=== PATIENT | male | born 1970 | race Caucasian/White ===

== ENCOUNTER 2023-06-30 21:49 | Emergency (ER) | payer BC, SELFPAY ==
[2023-06-30 22:01] VITALS: BP 137/87; PULSE 96; RESP 16; TEMP 36.9; O2SAT 96; BMI 33.3
--- NOTE | 2023-06-30 22:32 | CRLHL7_ITS ---
For Patients: As a result of the Century Cures Act, medical imaging exams and procedure reports are released immediately into your electronic medical record. You may view this report before your referring provider. If you have questions, please contact your health care provider. INDICATION: Chest pain. TECHNIQUE: Chest radiograph, 1 view. COMPARISON: Chest radiographs 03/29/2023 FINDINGS: Lines/Tubes/Devices: None. Mediastinum: Normal cardiac silhouette. Lungs: Linear bandlike opacifications of the lung bases likely due to subsegmental atelectasis and/or scarring. Hazy ill-defined opacifications of the zsarz-autgofm-adrh-left lower lung zones. Airways: The trachea remains midline. Pleura: There may be minimal blunting left costophrenic angle, suggestive of small pleural effusion. No right pleural effusion. No pneumothorax or Bones: No acute osseous abnormalities. Upper Abdomen: Unremarkable. IMPRESSION: Hazy ill-defined opacifications of the right greater than left lower lung zones, could represent atelectasis or developing bibasilar pneumonias in the proper clinical setting. Trace left pleural effusion. Dictated by Jaime Cobb MD @ 06/30/2023 10:58:46 PM (Electronically Signed)
[2023-06-30] MEDS: 0.9 % SODIUM CHLORIDE 1000 ml 1,000 ML IV (23:05)
[2023-06-30 23:10] VITALS: O2SAT 92
[2023-06-30 23:26] LABS: Chloride* 103 mmol/L (96-114); Sodium* 138 mmol/L (135-149)
[2023-06-30 23:27] LABS: Potassium* 3.8 mmol/L (3.6-5.1)
[2023-06-30 23:30] LABS: Anion Gap 10 mEq/L (7-15); Blood Urea Nitrogen* 16 mg/dL (7-30); Calcium* 9.2 mg/dL (8.4-10.6); Carbon Dioxide* 25 mmol/L (20-32); Glucose* 96 mg/dL (60-115)
--- NOTE | 2023-06-30 23:35 | CRLHL7_ITS ---
For Patients: As a result of the Century Cures Act, medical imaging exams and procedure reports are released immediately into your electronic medical record. You may view this report before your referring provider. If you have questions, please contact your health care provider. INDICATION: Shortness of breath, cough, chest pain. TECHNIQUE: CT chest PE was acquired with 95 cc Isovue 370 IV contrast. COMPARISON: None. FINDINGS: Heart and vasculature: Contrast opacification of the pulmonary arterial tree is adequate. No sign of pulmonary embolism. Heart size is normal. Thoracic aorta and pulmonary artery are normal in caliber. Lungs and pleura: Few scattered sub-6 mm pulmonary nodules, such as a 5 mm right middle lobe nodule (series 4, image 126) and a 5 mm right lower lobe nodule (series 4, image 118). No infiltrates. No pleural effusions, pleural thickening, or pneumothorax. Lymph nodes/mediastinum: No mediastinal, hilar, or axillary adenopathy. Thyroid gland is unremarkable. Chest wall: No masses. Upper abdomen: No acute or significant findings. Bones: Unremarkable for age. IMPRESSION: 1. No evidence of pulmonary embolism or acute intrathoracic abnormality. 2. Few scattered sub-6 mm pulmonary nodules. Please see below for follow-up guidelines. SOCIETY GUIDELINES - SOLID NODULES: MULTIPLE LOW RISK - nodule less than 6 mm: No routine follow-up. - nodule 6-8 mm: CT at 3-6 months, then consider CT at 18-24 months. - nodule greater than 8 mm: CT at 3-6 months, then consider CT at 18-24 months. MULTIPLE HIGH RISK - nodule less than 6 mm: Optional CT at 12 months. - nodule 6-8 mm: CT at 3-6 months, then at 18-24 months. - nodule greater than 8 mm: CT at 3-6 months, then at 18-24 months. Please note that all CT scans at this facility use dose modulation, iterative reconstruction, and/or weight-based dosing when appropriate to reduce radiation dose to as low as reasonably achievable. Dictated by Mark Olivo MD @ 07/01/2023 12:53:41 AM (Electronically Signed)
[2023-06-30 23:44] LABS: D Dimer Quantitative* < 0.27 ug/ml (0.00-0.50)
[2023-06-30 23:49] LABS: Basophils Absolute Auto 0.04 K/uL (0.00-0.30); Basophils Percent Auto 0.6 % (0.0-3.0); Eosinophils Absolute Auto 0.06 K/uL (0.00-0.50); Eosinophils Percent Auto 0.9 % (0.0-7.0); Hematocrit 47.1 % (37.0-53.0); Hemoglobin* 16.3 gm/dL (13.5-17.5); Immature Granulocytes Abs Auto 0.01 K/uL (0.00-0.30); Immature Granulocytes Pct Auto 0.2 %; Lymphocytes Absolute Auto 2.24 K/uL (0.90-2.90); Mean Corpuscular HGB Conc 35 gm/dL (32-36); Mean Corpuscular Hemoglobin 30 pg (26-34); Mean Corpuscular Volume 88 fL (80-100); Monocytes Percent Auto 7.6 % (0.0-11.0); Neutrophils Absolute Auto 3.74 K/uL (1.7-7.0); Neutrophils Percent Auto 56.7 % (42.0-72.0); Platelet Count* 337 K/uL (140-440); RDW Coefficient of Variation % 12.6 % (11.5-15.5); Red Blood Count 5.37 m/uL (4.30-5.90); White Blood Count* 6.59 K/uL (4.50-11.00)
[2023-06-30 23:52] LABS: PCR FLU A Negative PCR FLU A (Negative); PCR FLU B Negative PCR FLU B (Negative); PCR RSV Negative PCR RSV (Negative)
[2023-06-30 23:55] LABS: Slide Review Reflex No
[2023-06-30 23:56] LABS: NT Pro B Type NatriureticPept* < 20 pg/mL
[2023-07-01 00:06] LABS: SARS PCR* Negative SARS-CoV-2 (Negative)
[2023-07-01 00:19] LABS: Creatinine* 0.8 mg/dL (0.5-1.5); Est. Creatinine Clearance* 91.82; Estimated Glomerular Filt Rate 105 ml/min
--- NOTE | 2023-07-01 01:08 | ED_ITS ---
HPI - Chest Pain General Date Seen: 07/01/23 Chief Complaint: Abdominal Pain Stated Complaint: Chest and abdomen pain Time Seen by Provider: 06/30/23 21:50 Source: patient Mode of arrival: ambulatory Limitations: no limitations History of Present Illness HPI narrative: Patient is a 52-year-old gentleman who presents here with something in his throat, he has is feeling a something in his throat he has had this on off, but worse today. He has had this multiple times in the past and does take omeprazole irregularly he thinks for this, he tried some Mylanta tonight in helped a little bit. He does not have it worse when he moves around exerts himself, has been worked up for chest pain in the past, he tells me this is not his heart. Denies any leg swelling so this coughing. Is not on any antihypertensives, no history elevated cholesterol no history of diabetes, and nonsmoker. Feels almost that food maybe get stuck a little bit, but was able to drink a whole bottle water on the way over. He last ate approximately 5:00 p.m. and that was fine. No family history of premature coronary artery disease is not use cocaine or other medications I do not think he has had a previous EGD Prior episodes: Yes Treatment prior to arrival: none Risk Factors Coronary artery disease risk factors: none Thoracic aortic dissection risk factors: none Related Data Home Medications Medication Instructions Recorded Confirmed omeprazole 20 mg tablet,delayed 20 mg PO DAILY 06/30/23 06/30/23 release Allergies Allergy/AdvReac Type Severity Reaction Status Date / Time No Known Drug Allergies Allergy Verified 06/30/23 21:58 Review of Systems Status of ROS Reports: 10 or more systems reviewed and unremarkable except as noted in History and below [facility] Social History Smoking Status: Never smoker Do you use any of these nicotine containing products: None Second hand tobacco smoke exposure: No How often do you have a drink containing alcohol: never How often do you have six or more drinks on one occasion: Never AUDIT-C Alcohol total score: 0 Non-prescribed substance use: denies use service: No Exam Narrative Exam Narrative: Patient is seen in room 2 she is in no apparent distress Patient is speaking normally, no problem with slurring words, oriented x3. Head eyes ears nose and throat exam show equal pupils, no scleral icterus, extraocular muscles are normal, no facial droop, speech is normal, trachea normal and midline. Thyroid normal midline palpable not enlarged. Chest shows symmetrical rise bilaterally, normal auscultation with no wheezes, no increased work of breathing, no overt bruising or lesions seen, no tenderness is noted on auscultation. Heart sounds normal with no S3-S4 no murmurs clicks or gallops. Abdomen shows no obvious masses or hepatosplenomegaly, no organomegaly, bowel sounds are normal in all quadrants. No tenderness is noted also in all quadrants. Upper and lower extremities show normal power, normal range of motion, pulses are normal, sensations normal, fine motor movements are normal, pelvis is stable to rocking. Cervical spine shows normal range of motion, and palpably not tender. Thoracic spine shows normal range of motion, and palpably not tender, lumbar spine shows no tenderness to palpation percussion and is otherwise normal range of motion. Skin shows no rashes, petechiae or eccymosis. Const Vital Signs, click to edit/add: Vital Signs - 24 hr 06/30/23 22:01 06/30/23 23:10 Temperature 98.5 F Pulse Rate [Pulse Oximeter] 96 Respiratory Rate 16 Blood Pressure [Right Upper Arm] 137/87 Pulse Oximetry 96 92 Oxygen Delivery Method Room Air Documenting provider has reviewed patient's vital signs: yes Course Course ED Course: Discussed with the patient is D-dimer is normal troponins normal his chest he does not show any acute pneumonia. For pulmonary embolism I think this is likely related to reflux bowel any needs to take his omeprazole more regular., like every day also would like him to follow-up for an EGD. He is very comfortable this plan he will return if any further issues or questions. Vital Signs Vital signs: Initial Vital Signs Temperature 98.5 F 06/30/23 22:01 Temperature Source Temporal Artery Scan 06/30/23 22:01 Pulse Rate 96 06/30/23 22:01 Pulse Rhythm Regular 06/30/23 22:01 Pulse Strength 3+ Normal 06/30/23 22:01 Respiratory Rate 16 06/30/23 22:01 Blood Pressure 137/87 06/30/23 22:01 Blood Pressure Mean 103 06/30/23 22:01 Blood Pressure Position Sitting 06/30/23 22:01 Pulse Oximetry 96 06/30/23 22:01 Oxygen Delivery Method Room Air 06/30/23 22:01 Vital Signs Temperature 98.5 F 06/30/23 22:01 Pulse Rate 96 06/30/23 22:01 Respiratory Rate 16 06/30/23 22:01 Blood Pressure 137/87 06/30/23 22:01 Pulse Oximetry 96 06/30/23 22:01 Oxygen Delivery Method Room Air 06/30/23 22:01 Temperature 98.5 F 06/30/23 22:01 Pulse Rate 96 06/30/23 22:01 Respiratory Rate 16 06/30/23 22:01 Blood Pressure 137/87 06/30/23 22:01 Pulse Oximetry 92 06/30/23 23:10 Oxygen Delivery Method Room Air 06/30/23 22:01 Medications Administered Medications: Discontinued Medications Generic Name Dose Route Start Last Admin Trade Name Freq PRN Reason Stop Dose Admin Sodium Chloride 1,000 mls @ 1,000 mls/hr 06/30/23 22:45 07/01/23 00:05 0.9 % Sodium Chloride 1000 Ml IV 06/30/23 23:44 Infused .Q1H JT Infusion MDM - Chest Pain MDM Narrative Medical decision making narrative: During the evaluation of this patient I considered multiple differential diagnosis is. The life-threatening differential diagnosis include coronary disease/UT, pulmonary embolism, pneumothorax, pneumonia, and aortic dissection. Other differential diagnosis included but were not limited to pericarditis, myocarditis, chest wall pain, GERD, esophageal rupture, rib fracture contusion, pleurisy, as well as other etiologies. Medical Records Data Attestation: I reviewed the patient's medical records. Lab Data Attestation: I reviewed the patient's lab results. Labs: Lab Results 06/30/23 06/30/23 Range/Units 22:34 23:06 WBC 6.59 (4.50-11.00) K/uL RBC 5.37 (4.30-5.90) m/uL Hgb 16.3 (13.5-17.5) gm/dL Hct 47.1 (37.0-53.0) % MCV 88 (80-100) fL MCH 30 (26-34) pg MCHC 35 (32-36) gm/dL RDW Coeff of Francis 12.6 (11.5-15.5) % Plt Count 337 (140-440) K/uL Neut % (Auto) 56.7 (42.0-72.0) % Lymph % (Auto) 34.0 (20-44) % [place] % (Auto) 7.6 (0.0-11.0) % Eos % (Auto) 0.9 (0.0-7.0) % Baso % (Auto) 0.6 (0.0-3.0) % Neut # (Auto) 3.74 (1.7-7.0) K/uL Lymph # (Auto) 2.24 (0.90-2.90) K/uL [place] # (Auto) 0.50 (0.00-0.90) K/UL Eos # (Auto) 0.06 (0.00-0.50) K/uL Baso # (Auto) 0.04 (0.00-0.30) K/uL Abs Immat Gran (auto) 0.01 (0.00-0.30) K/uL Imm/Tot Granulo (auto) 0.2 % D-Dimer Quant (PE/DVT) < 0.27 (0.00-0.50) ug/ml Sodium 138 (135-149) mmol/L Potassium 3.8 (3.6-5.1) mmol/L Chloride 103 (96-114) mmol/L Carbon Dioxide 25 (20-32) mmol/L Anion Gap 10 (7-15) mEq/L BUN 16 (7-30) mg/dL Creatinine 0.8 (0.5-1.5) mg/dL Estimated Creat Clear 91.82 Estimated GFR 105 ml/min Glucose 96 (60-115) mg/dL Calcium 9.2 (8.4-10.6) mg/dL NT-Pro-B Natriuret Pep < 20 pg/mL SARS-CoV-2 (PCR) Negative SARS-CoV-2 (Negative) Influenza Type A (PCR) Negative PCR FLU A (Negative) Influenza Type B (PCR) Negative PCR FLU B (Negative) RSV (PCR) Negative PCR RSV (Negative) POC Troponin I 0.00 L (0.01-0.04) ng/ml ECG Data Attestation: I personally reviewed and interpreted this ECG as follows: Prior ECG tracings: available for review Interpretation: Normal EKG with no acute changes. Discharge Plan Discharge Clinical Impression: Acid reflux, Chest pain Patient Disposition: Home, Self-Care Condition: Stable Instructions: GERD (Gastroesophageal Reflux Disease) (DC), Indigestion (ED), Noncardiac Chest Pain (ED) Additional Instructions: Home rest please take here omeprazole 20 mg a day for the next 6 weeks, follow- up with your regular physician I would suggest an EGD. Return as needed. Prescriptions: No Action omeprazole 20 mg tablet,delayed release (DR/EC) 20 mg PO DAILY Follow Up/Referrals: Moncho Salazar MD [Primary Care Provider] - Stand Alone Forms: [employer] Info Instructions
--- NOTE | 2023-07-01 01:11 | PC.NURSE ---
Written and vebval D/C per MD and RN. Able to ambulate out without diff.
== END 2023-07-01 01:15 | disposition home or self-care (01) ==
PROVIDERS: Emergency Provider Family Medicine; PCP Family Medicine
DX: R07.9 Chest pain, unspecified (principal); K21.9 Gastro-esophageal reflux disease without esophagitis
CPT/HCPCS: 36415; 71046; 71275; 80048; 80306; 83880; 84484; 85025; 85379; 87631; 93005; 94761; 99284; 99285; J7030; Q9967

== ENCOUNTER 2024-01-08 22:15 | Emergency (ER) | payer BC, SELFPAY ==
[2024-01-08 22:26] VITALS: BP 142/87; PULSE 111; RESP 16; TEMP 38.2; O2SAT 96; BMI 31.3
--- NOTE | 2024-01-08 22:37 | ED.GENADULT ---
HPI - General Adult General Chief complaint: Cough Stated complaint: Cold Time Seen by Provider: 01/08/24 22:30 History of Present Illness HPI narrative: Patient is a 53-year-old gentleman who comes in today with wheezing occasionally. He feels like he has a chest cold. He has treated himself with amoxicillin that he has jorge luis from [place] as well as Bernadette D. he feels like he still not getting better. He has had no sick exposures. He has been sick for 5 days. He has had no shortness of breath. He does have a mild low-grade fever today. He states that his cough has been nonproductive. He has not tested for COVID or any viral syndromes. He is otherwise in good health. Related Data Home Medications ?Medication ?Instructions ?Recorded ?Confirmed omeprazole 20 mg tablet,delayed 20 mg PO DAILY 06/30/23 06/30/23 release Allergies Allergy/AdvReac Type Severity Reaction Status Date / Time No Known Drug Allergies Allergy Verified 06/30/23 21:58 Review of Systems Status of ROS: Reports: 10 or more systems reviewed and unremarkable except as noted in History and below PFSH PFS Social History Smoking Status: Never smoker Do you use any of these nicotine containing products: None Second hand tobacco smoke exposure: No How often do you have a drink containing alcohol: never How often do you have six or more drinks on one occasion: Never AUDIT-C Alcohol total score: 0 Non-prescribed substance use: denies use service: No Exam Narrative: Exam Narrative: EXAM GENERAL: Patient appears comfortable and well. EYES: No scleral icterus. ENT: Tympanic membranes and oropharynx normal. THYROID: no thyroid nodules or thyromegaly. LYMPH: No supraclavicular or cervical lymphadenopathy. SKIN: Visible skin seen during exam normal or with benign process only. EXT: No dependent lower extremity pedal edema. HEART: Regular rate and rhythm with no murmurs, rubs, or gallops. LUNGS: Clear to auscultation bilaterally with no crackles or wheezes. ABD: Soft, non tender, non distended. PSYCH: Good eye contact, speech is not pressured. Const: Vital Signs, click to edit/add: Vital Signs - 24 hr 01/08/24 22:26 Temperature 100.7 F H Pulse Rate [Pulse Oximeter] 111 H Respiratory Rate 16 Blood Pressure [Ri ght Upper Arm] 142/87 H Pulse Oximetry 96 Oxygen Delivery Me thod Room Air Course Vital Signs Vital signs: Initial Vital Signs Temperature 100.7 F H 01/08/24 22:26 Temperature Source Temporal Artery Scan 01/08/24 22:26 Pulse Rate 111 H 01/08/24 22:26 Respiratory Rate 16 01/08/24 22:26 Blood Pressure 142/87 H 01/08/24 22:26 Blood Pressure Mean 105 01/08/24 22:26 Blood Pressure Position Sitting 01/08/24 22:26 Pulse Oximetry 96 01/08/24 22:26 Oxygen Delivery Method Room Air 01/08/24 22:26 Vital Signs Temperature 100.7 F H 01/08/24 22:26 Pulse Rate 111 H 01/08/24 22:26 Respiratory Rate 16 01/08/24 22:26 Blood Pressure 142/87 H 01/08/24 22:26 Pulse Oximetry 96 01/08/24 22:26 Oxygen Delivery Method Room Air 01/08/24 22:26 Temperature 100.7 F H 01/08/24 22:26 Pulse Rate 111 H 01/08/24 22:26 Respiratory Rate 16 01/08/24 22:26 Blood Pressure 142/87 H 01/08/24 22:26 Pulse Oximetry 96 01/08/24 22:26 Oxygen Delivery Method Room Air 01/08/24 22:26 Medical Decision Making MDM Narrative Medical decision making narrative: I am concerned about the mild fever but I do not hear anything on chest x-ray. He is in absolutely no distress. He at this time will be treated with short course of prednisone Tylenol rest and fluids. Follow-up on a p.r.n. basis. Differential diagnosis includes but not limited to pneumonia bronchitis viral syndrome sinusitis. Discharge Plan Discharge Clinical Impression: Acute upper respiratory infection Patient Disposition: Home, Self-Care Condition: Stable Instructions: Acute Bronchitis (ED) Additional Instructions: Prednisone as directed Zyrtec D as directed Follow-up with your doctor as needed Tylenol as needed Rest Fluids Activity Level: No Restrictions Discharge Diet: Regular Prescriptions: No Action omeprazole 20 mg tablet,delayed release (DR/EC) 20 mg PO DAILY Follow Up/Referrals: Moncho Salazar MD [Primary Care Provider] - Stand Alone Forms: [employer] Info Instructions
== END 2024-01-08 22:45 | disposition home or self-care (01) ==
LOC: ED 22:41
PROVIDERS: Emergency Provider Internal Medicine; PCP Family Medicine
DX: J06.9 Acute upper respiratory infection, unspecified (principal)
CPT/HCPCS: 99282; 99283